=== PATIENT | male | born 1940 | race Caucasian/White ===

== ENCOUNTER 2021-03-16 | Outpatient (REF) | payer MEDICARE, OTHER, SELFPAY ==
[2021-03-23 08:24] LABS: OBS Int Ctl Valid YES; OBS1 NEGATIVE (NEGATIVE); OBS2 NEGATIVE (NEGATIVE); OBS3 NEGATIVE (NEGATIVE)
== END 2021-03-16 00:01 ==
LOC: HO.LNP
PROVIDERS: Visit Provider Internal Medicine
DX: K62.5 Hemorrhage of anus and rectum (principal)
CPT/HCPCS: 82270

== ENCOUNTER 2023-06-02 08:02 | Outpatient (REF) | payer MEDICARE, OTHER, SELFPAY ==
[2023-06-02 08:25] LABS: MANUAL DIFF FLAG NO
[2023-06-02 09:01] LABS: Basophils Percent Auto 0.6 % (0-2); Eosinophils Absolute Auto 0.2 X10*3/uL (0.0-0.4); Eosinophils Percent Auto 3.4 % (0-4); Hemoglobin 15.1 g/dl (14.0-18.0); Imm Gran Abs Auto 0.03 X10*3/uL (0.00-0.03); Imm Gran Pct Auto 0.4 % (0.0-0.4); Lymphocytes Absolute Auto 1.5 X10*3/uL (1.2-4.9); Lymphocytes Percent Auto 21.5 % (20-40); Mean Corpuscular HGB Conc 32.8 g/dl (31.0-36.0); Mean Corpuscular Hemoglobin 30.8 pg (27.0-33.0); Mean Corpuscular Volume 93.9 fL (80.0-98.0); Mean Platelet Volume 11.7 fL (9.4-12.4); Monocytes Absolute Auto 0.6 X10*3/uL (0.1-1.2); Monocytes Percent Auto 8.2 % (2-11); Neutrophils Absolute Auto 4.5 x10*3/uL (2.0-8.3); Neutrophils Percent Auto 65.9 % (45-73); Platelet Count 147 X10*3/uL (160-400); Red Cell Distribution Width 13.2 % (11.0-16.0); White Blood Count 6.8 X10*3/uL (4.8-10.8)
[2023-06-02 09:45] LABS: Alanine Aminotransferase 25 U/L (0-40); Albumin Level 4.3 g/dL (3.5-5.0); Alkaline Phosphatase 58 U/L (39-117); Aspartate Amino Transferase 23 U/L (5-37); Bilirubin Direct 0.2 mg/dL (0.0-0.5); Bilirubin Total 0.6 mg/dL (0.0-1.0); Total Protein 7.4 g/dL (6.5-8.0)
[2023-06-03 13:43] LABS: Immunoglobulin A 188 mg/dL (70-320)
[2023-06-04 19:28] LABS: Gliadin Deamidated IgA Ab <1.0 U/mL; Gliadin Deamidated IgG Ab <1.0 U/mL; Transglutaminase Ab IgG <1.0 U/mL; Transglutaminase IgA <1.0 U/mL
[2023-06-05 13:17] LABS: Endomysial IgA Antibody Negative (Negative)
== END 2023-06-02 08:03 | disposition home or self-care (01) ==
LOC: HO.LAB 08:02
PROVIDERS: Visit Provider Internal Medicine
DX: R19.4 Change in bowel habit (principal)
CPT/HCPCS: 36415; 80076; 82784; 85025; 86231; 86258; 86364

== ENCOUNTER 2023-08-27 08:03 | Outpatient (REF) | payer MEDICARE, OTHER, SELFPAY ==
[2023-08-27 08:24] LABS: MANUAL DIFF FLAG NO
[2023-08-27 09:09] LABS: Basophils Percent Auto 0.5 % (0-2); Eosinophils Absolute Auto 0.2 X10*3/uL (0.0-0.4); Eosinophils Percent Auto 2.8 % (0-4); Hematocrit 46.8 % (42.0-52.0); Hemoglobin 15.4 g/dl (14.0-18.0); Imm Gran Abs Auto 0.02 X10*3/uL (0.00-0.03); Imm Gran Pct Auto 0.3 % (0.0-0.4); Lymphocytes Absolute Auto 1.2 X10*3/uL (1.2-4.9); Lymphocytes Percent Auto 20.2 % (20-40); Mean Corpuscular HGB Conc 32.9 g/dl (31.0-36.0); Mean Corpuscular Hemoglobin 30.9 pg (27.0-33.0); Mean Corpuscular Volume 93.8 fL (80.0-98.0); Mean Platelet Volume 11.8 fL (9.4-12.4); Monocytes Absolute Auto 0.5 X10*3/uL (0.1-1.2); Monocytes Percent Auto 7.9 % (2-11); Neutrophils Absolute Auto 4.2 x10*3/uL (2.0-8.3); Neutrophils Percent Auto 68.3 % (45-73); Platelet Count 134 X10*3/uL (160-400); Red Blood Count 4.99 X10*6/uL (4.60-5.80); Red Cell Distribution Width 14.1 % (11.0-16.0); White Blood Count 6.1 X10*3/uL (4.8-10.8)
[2023-08-27 09:45] LABS: C Reactive Protein 0.45 mg/dL (< or = 0.50)
[2023-08-27 10:08] LABS: Erythrocyte Sedimentation Rate 3 MM/HR (0-15)
== END 2023-08-27 08:04 | disposition home or self-care (01) ==
LOC: HO.LAB 08:03
PROVIDERS: PCP Nurse Practitioner Family; Visit Provider Internal Medicine
DX: R19.7 Diarrhea, unspecified (principal)
CPT/HCPCS: 36415; 85025; 85652; 86140

== ENCOUNTER 2023-09-03 11:01 | Outpatient (REF) | payer MEDICARE, OTHER, SELFPAY ==
[2023-09-03 12:45] LABS: Leukocytes Stool Qualitative NEGATIVE (NEGATIVE)
[2023-09-03 13:29] LABS: Adenovirus F 40/41 Not Detected (Not Detect.); Astrovirus Not Detected (Not Detect.); Campylobacter Not Detected (Not Detect.); Cryptosporidium Not Detected (Not Detect.); Cyclospora cayetanensis Not Detected (Not Detect.); E. coli EAEC Not Detected (Not Detect.); E. coli EPEC Not Detected (Not Detect.); E. coli ETEC Not Detected (Not Detect.); E. coli STEC Not Detected (Not Detect.); Entamoeba histolytica Not Detected (Not Detect.); Giardia lamblia Not Detected (Not Detect.); Plesiomonas shigelloides Not Detected (Not Detect.); Rotavirus A Not Detected (Not Detect.); Salmonella Not Detected (Not Detect.); Sapovirus Not Detected (Not Detect.); Shigella sp./EIEC Not Detected (Not Detect.); Vibrio Not Detected (Not Detect.); Vibrio Cholerae Not Detected (Not Detect.); Yersinia enterocolitica Not Detected (Not Detect.)
[2023-09-03 14:44] LABS: CDiff Gene PCR NEGATIVE (Negative)
[2023-09-05 09:24] LABS: Norovirus Stool PCR NOT DETECTED
[2023-09-09 19:08] LABS: Calprotectin, Fecal 51 mcg/g
== END 2023-09-03 11:02 | disposition home or self-care (01) ==
LOC: HO.LNP 11:01
PROVIDERS: Visit Provider Internal Medicine
DX: R19.7 Diarrhea, unspecified (principal)
CPT/HCPCS: 83993; 87493; 87507; 89055

== ENCOUNTER 2023-10-06 08:39 | Inpatient (IN) | payer MEDICARE, OTHER, SELFPAY ==
--- NOTE | ~2023-10-06 | CT_ITS ---
EXAMINATION: CT ABDOMEN AND PELVIS WITHOUT CONTRAST CLINICAL INFORMATION: Right-sided flank pain COMPARISON: None available. TECHNIQUE: Multidetector volumetric imaging was performed from the superior aspect of the liver through the pubic symphysis. Sagittal and coronal reformatted images were obtained on the technologist's workstation. This CT examination was performed using dose optimization techniques as appropriate, variously including the following: *Automated exposure control *Adjustment of mA and/or kV according to patient size (this includes techniques or standardized protocols for targeted exams where dose is matched to indication/reason for exam; i.e. extremities or head) *Use of iterative reconstruction technique DLP: 544 mGy-cm FINDINGS: LUNG BASES: The visualized lung bases are unremarkable. LIVER, GALLBLADDER, AND BILIARY TREE: The liver is normal in size, shape, and attenuation. No focal hepatic lesion or biliary ductal dilatation is present. The gallbladder is unremarkable with no evidence of radiopaque gallstones, gallbladder wall thickening, or obvious pericholecystic inflammatory changes. PANCREAS: Unremarkable. SPLEEN: Unremarkable. ADRENAL GLANDS: Unremarkable. KIDNEYS AND URETERS: The kidneys are normal in size, shape, and attenuation. No hydronephrosis, hydroureter, or calculi seen. 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 Nonspecific bilateral perinephric stranding. BLADDER: Unremarkable. GASTROINTESTINAL TRACT: The small and large bowel are unremarkable aside from scattered colonic diverticula without diverticulitis. The appendix is mildly distended measuring a centimeter in length. No air is seen within the appendix. Some abdomen decub lymph nodes are present distally. There is mild inflammatory change seen in the periappendiceal fat. No extraluminal air or periappendiceal fluid collection is seen. ABDOMINAL WALL: No significant hernia is appreciated. LYMPH NODES: No retroperitoneal lymphadenopathy. VASCULAR: Calcific atherosclerotic changes are present in the aorta and iliofemoral vessels. There is no evidence of an abdominal aortic aneurysm. PELVIC VISCERA: There is mild BPH. Seminal vesicles appear normal. OSSEOUS STRUCTURES: Degenerative changes are present throughout the lumbosacral spine. There is grade 1 retrolisthesis of L2 upon L3, L3 upon L4 and L5 upon S1. There is grade 1 anterolisthesis of L4 upon L5. CT/CT abdomen pelvis wo IV con IMPRESSION: 1. Acute uncomplicated appendicitis. 2. Other incidental findings as described above. Fleischner guidelines were followed.
[2023-10-06 09:12] VITALS: BP 155/62; PULSE 66; RESP 18; TEMP 36.5; O2SAT 96; BMI 28.9
[2023-10-06 09:41] LABS: MANUAL DIFF FLAG NO
[2023-10-06 09:43] LABS: Appearance Urine Clear; Color Urine Yellow; Glucose Urine UA >=1000 mg/dL (Negative); Leukocyte Esterase Urine Negative (Negative); Nitrite Urine Negative (Negative); Specific Gravity - Urine 1.025 (1.005-1.025); UMIC TRIGGER UACC YES; Urine Blood Negative (Negative); Urine Ketones Negative (Negative); Urine Protein Negative (Neg-Trace)
[2023-10-06 09:45] LABS: Bacteria Urine None Seen (None Seen); Basophils Percent Auto 0.4 % (0-2); Eosinophils Absolute Auto 0.2 X10*3/uL (0.0-0.4); Hematocrit 43.9 % (42.0-52.0); Hemoglobin 14.4 g/dl (14.0-18.0); Hyaline Casts Urine 0-2 /LPF (0-2); Imm Gran Abs Auto 0.03 X10*3/uL (0.00-0.03); Imm Gran Pct Auto 0.4 % (0.0-0.4); Lymphocytes Absolute Auto 1.4 X10*3/uL (1.2-4.9); Lymphocytes Percent Auto 16.5 % (20-40); Mean Corpuscular HGB Conc 32.8 g/dl (31.0-36.0); Mean Corpuscular Hemoglobin 31.4 pg (27.0-33.0); Mean Corpuscular Volume 95.6 fL (80.0-98.0); Mean Platelet Volume 11.3 fL (9.4-12.4); Monocytes Absolute Auto 0.6 X10*3/uL (0.1-1.2); Monocytes Percent Auto 7.6 % (2-11); Neutrophils Percent Auto 73.1 % (45-73); Platelet Count 158 X10*3/uL (160-400); RBC Urine 0-2 /HPF (0-2); Red Blood Count 4.59 X10*6/uL (4.60-5.80); Red Cell Distribution Width 14.6 % (11.0-16.0); Squamous Epithelial Cell Urine 0-2 /HPF (0-2); WBC Urine 0-5 /HPF (0-5); White Blood Count 8.2 X10*3/uL (4.8-10.8)
[2023-10-06 09:57] LABS: Alanine Aminotransferase 33 U/L (0-40); Albumin Level 4.4 g/dL (3.5-5.0); Alkaline Phosphatase 47 U/L (39-117); Anion Gap 12 (12-20); Aspartate Amino Transferase 33 U/L (5-37); Bilirubin Direct 0.2 mg/dL (0.0-0.5); Bilirubin Total 0.6 mg/dL (0.0-1.0); Blood Urea Nitrogen 22 mg/dL (9-16); Carbon Dioxide 26 mmol/L (22-29); Chloride 108 mmol/L (96-108); Estimated Glomerular Filt Rate 49; Glucose Random 128 mg/dL (60-115); Magnesium 1.7 mg/dL (1.6-2.6); Potassium 4.3 mmol/L (3.3-5.1); Sodium 142 mmol/L (135-145); Total Protein 7.2 g/dL (6.5-8.0)
--- NOTE | 2023-10-06 11:03 | ED.ABDPAIN ---
HPI - Abdominal Pain General Chief Complaint: Abdominal Pain Stated Complaint: pain on r side abd and r lung Time Seen by Provider: 10/06/23 11:03 Source: patient Mode of arrival: ambulatory Limitations: no limitations History of Present Illness ED Provider: Dr. Escudero HPI narrative: 83yo male with DM, HTN, CAD with Cabbg, who presents with shooting right lower abdominal pain starting yesterday. He denies fever, NV. MD elicited complaint: abdominal pain Onset (ago): day(s) Pain Consistency: constant Severity: mild Quality: other (shooting) Related Data Allergies Allergy/AdvReac Type Severity Reaction Status Date / Time atenolol AdvReac Dizziness Verified 10/06/23 09:16 diltiazem [From Cardizem] AdvReac Heartburn Verified 10/06/23 09:16 losartan AdvReac Headache Verified 10/06/23 09:16 propranolol [From Inderal [place]] AdvReac Heartburn Verified 10/06/23 09:16 Review of Systems Review of Systems Yes all other systems are reviewed and are negative Denies Sensory deficit (Neuro) [facility] Past Medical History Medical History (Updated 10/06/23 @ 13:43 by Kaleb Escudero MD) Acute appendicitis Hypertension Coronary artery disease Surgical History (Updated 10/06/23 @ 13:19 by Ortiz Estrella MD) Status post aorto-coronary artery bypass graft Social History Social History Advance Directives: No Advance Directives Information Provided: No Do you have a plan to hurt others: No Plan Physical Exam ED Vital Signs: Vital Signs - 24 hr 10/06/23 09:12 10/06/23 11:47 10/06/23 12:28 Temperature 97.7 F 97.9 F 98.8 F Pulse Rate 66 62 57 Respiratory Rate 18 16 16 Blood Pressure 155/62 H 151/67 H 157/68 H Pulse Oximetry 96 98 96 Oxygen Delivery Method Room Air Room Air Room Air BMI result Body Mass Index 28.9 Const General: healthy appearing Nutritional Appearance: average body habitus Orientation/consciousness: oriented to person and patient oriented x3 Limitations: no limitations HENMT Head: Yes normal to inspection Ears: external ears normal General nose exam: Normal external nose present Mouth: Normal oral and palatal mucosa present and oropharynx normal Throat: Yes posterior oropharynx normal Eyes General: appearance normal, both eyes and all related structures Neck Neck: Yes normal visual inspection Chest Chest palpation & inspection: normal inspection of the chest Resp Auscultation: clear to auscultation bilaterally Cardio Jugular venous distension: no JVD Rate: regular rate Rhythm: regular rhythm Heart sounds: S1 normal heart sound present and S2 normal heart sound present GI Other: there was no reproducible right sided abdominal pain Inspection: Yes normal to inspection Palpation (GI): Soft to palpation, nontender and No hepatosplenomegaly present Auscultation: normal bowel sounds General: Yes no CVA tenderness Back/Spine/Pelvis Back: no CVA tenderness Skin General skin exam: no rashes or lesions noted Neuro General: oriented to person and patient oriented x3 Cranial nerves: Yes CN's II-XII intact bilaterally Motor exam (neuro): 5/5 motor strength present throughout Sensory Exam: No Sensory deficit (Neuro) Extrem General: Yes normal to inspection Psych Appearance: grossly normal Course Reevaluation(s) Reevaluation #1: Discussed with Dr. Estrella will start zosyn and get admitted Time: 13:14 Medical Decision Making Differential Diagnosis Differential Diagnoses: The differential diagnosis associated with the presentation includes (renal colic, biliary colic, appendicitis, UTI were all considered) Admission/Observation Consideration of admission/observation: Escalation of care including admission/observation considered (upon arrival patient considered for admission) Consult Healthcare Provider Management of the patient was discussed with: Savings Counselor (Dr. Estrella general surgery) Lab Data 10/06/23 09:34 10/06/23 09:34 Labs: Lab Results 10/06/23 Range/Units 09:34 WBC 8.2 (4.8-10.8) X10*3/uL RBC 4.59 L (4.60-5.80) X10*6/uL Hgb 14.4 (14.0-18.0) g/dl Hct 43.9 (42.0-52.0) % MCV 95.6 (80.0-98.0) fL MCH 31.4 (27.0-33.0) pg MCHC 32.8 (31.0-36.0) g/dl RDW 14.6 (11.0-16.0) % Plt Count 158 L (160-400) X10*3/uL MPV 11.3 (9.4-12.4) fL Immature Gran % (Auto) 0.4 (0.0-0.4) % Neut % (Auto) 73.1 H (45-73) % Lymph % (Auto) 16.5 L (20-40) % [place] % (Auto) 7.6 (2-11) % Eos % (Auto) 2.0 (0-4) % Baso % (Auto) 0.4 (0-2) % Lymph # (Auto) 1.4 (1.2-4.9) X10*3/uL [place] # (Auto) 0.6 (0.1-1.2) X10*3/uL Eos # (Auto) 0.2 (0.0-0.4) X10*3/uL Baso # (Auto) 0.0 (0.0-0.2) X10*3/uL Abs Immat Gran (auto) 0.03 (0.00-0.03) X10*3/uL Absolute Neuts (auto) 6.0 (2.0-8.3) x10*3/uL Absolute Nucleated RBC 0.000 (0.0-0.012) X10*3/uL Nucleated RBC % (auto) 0.0 (0.0-0.2) /100WBC Sodium 142 (135-145) mmol/L Potassium 4.3 (3.3-5.1) mmol/L Chloride 108 (96-108) mmol/L Carbon Dioxide 26 (22-29) mmol/L Anion Gap 12 (12-20) BUN 22 H (9-16) mg/dL Creatinine 1.38 (0.5-1.4) mg/dL Estim Creat Clear Calc 44.0 Estimated GFR 49 Random Glucose 128 H (60-115) mg/dL Calcium 10.0 (8.4-10.2) mg/dL Magnesium 1.7 (1.6-2.6) mg/dL Total Bilirubin 0.6 (0.0-1.0) mg/dL Direct Bilirubin 0.2 (0.0-0.5) mg/dL AST 33 (5-37) U/L ALT 33 (0-40) U/L Alkaline Phosphatase 47 (39-117) U/L Total Protein 7.2 (6.5-8.0) g/dL Albumin 4.4 (3.5-5.0) g/dL Urine Color Yellow Urine Appearance Clear Urine pH 7.0 (5.0-9.0) Ur Specific [place] 1.025 (1.005-1.025) Urine Protein Negative (Neg-Trace) mg/dL Urine Glucose (UA) >=1000 H (Negative) mg/dL Urine Ketones Negative (Negative) mg/dL Urine Blood Negative (Negative) Urine Nitrite Negative (Negative) Ur Leukocyte Esterase Negative (Negative) Urine RBC 0-2 (0-2) /HPF Urine WBC 0-5 (0-5) /HPF Ur Squamous Epith Cells 0-2 (0-2) /HPF Urine Bacteria None Seen (None Seen) Hyaline Casts 0-2 (0-2) /LPF Independent Interpretation I performed an independent interpretation of an: CT Scan (no renal stone or hydro seen) Radiology Impression Discussion of test interpretation with radiology: I discussed test interpretation with the radiologist (called about acute appendicitis findings) Discharge Plan Discharge Clinical Impression: Appendicitis Patient Disposition: Admitted As Inpatient Print Language: Upper Sorbian
[2023-10-06 11:47] VITALS: BP 151/67; PULSE 62; RESP 16; TEMP 36.6; O2SAT 98
[2023-10-06 12:28] VITALS: BP 157/68; PULSE 57; RESP 16; TEMP 37.1; O2SAT 96
--- NOTE | 2023-10-06 13:18 | PM.HPGS ---
History of Present Illness History of Present Illness Date of Service: 10/07/23 Chief complaint: Acute appendicitis Narrative: Marshal Antonio is a 83 year old male here in the ER for right lower quadrant pain. He says that this started around 10:00 o'clock last night. He describes his a sharp although low intensity. He said that this persistent overnight so he decided to come to the emergency room early this morning He denies any nausea or vomiting. He denies any fever at home. He denies any diarrhea He has known coronary artery disease and had CABG in 2020. Review of Systems Constitutional: Constitutional: Denies chills and Denies fever(s) Cardiovascular: Cardiovascular: Denies chest pain, Denies dyspnea and Denies dyspnea on exertion Respiratory: Respiratory: Denies cough, Denies dyspnea and Denies dyspnea on exertion Gastrointestinal: Gastrointestinal: Denies hematochezia and Denies change in bowel habits Genitourinary: Genitourinary: Denies hematuria and Denies difficulty urinating Musculoskeletal: Musculoskeletal: Denies back pain and Denies limited range of motion Neurologic: Denies focal weakness and Denies convulsions Psychiatric: Psychiatric: Denies depression and Denies mood swings PMFSH Past Medical History Medical History [place] esophagus Diabetic neuropathy Prostate cancer COPD (chronic obstructive pulmonary disease) Diabetes Acute appendicitis Hypertension Coronary artery disease Surgical History Surgical History Status post radiation therapy Status post aorto-coronary artery bypass graft Social History Social History Household Members: Spouse Housing: House Do you presently have visiting nurse or other home services: No Patient Tobacco Use Status: Never used Tobacco Smoked in Last 30 Days: No Use of substances other than those prescribed or required for medical reasons: No Currently Displaying Signs/Symptoms of Drug Intoxication Withdrawal: No Have you been hit, kicked, punched, or otherwise hurt by someone within the past year? If so, by whom?: No Do you feel safe in your current relationship?: Yes Is there a partner from a previous relationship who is making you feel unsafe now?: No Are you made to feel afraid or neglected: No Advance Directives: No Advance Directives Information Provided: No Do you have a plan to hurt others: No Plan Recently lost weight without trying: No How much weight loss: Not applicable Eating poorly because of decreased appetite: No Nutrition screen score: 0 Nutrition Risks: No Nutritional Risk Poor oral hygiene: No service: No Meds Allergies Allergy/AdvReac Type Severity Reaction Status Date / Time atenolol AdvReac Dizziness Verified 10/06/23 09:16 diltiazem [From Cardizem] AdvReac Heartburn Verified 10/06/23 09:16 losartan AdvReac Headache Verified 10/06/23 09:16 propranolol [From Inderal [place]] AdvReac Heartburn Verified 10/06/23 09:16 Active Medications: Current Medications Piperacillin Sod/Tazobactam (Sod 3.375 gm/ Sodium Chloride) 50 mls @ 100 mls/hr IV ONCE ONE Stop: 10/06/23 13:41 Home Medications ?Medication ?Instructions ?Recorded ?Confirmed ?Last Taken ?Type aspirin 81 mg tablet,delayed 81 mg PO DAILY 10/06/23 10/06/23 Unknown History release cholecalciferol (vitamin D3) 50 50 mcg PO DAILY 10/06/23 10/06/23 Unknown History mcg (2,000 unit) tablet (Vitamin D3) cyanocobalamin (vitamin B-12) 1,000 mcg PO DAILY 10/06/23 10/06/23 Unknown History 1,000 mcg tablet doxazosin 8 mg tablet 8 mg PO BEDTIME 10/06/23 10/06/23 Unknown History empagliflozin 12.5 mg-metformin ER 1 tab PO BID 10/06/23 10/06/23 Unknown History 1,000 mg tablet,extended rel 24 hr (Synjardy XR) fenofibrate micronized 134 mg 134 mg PO DAILY 10/06/23 10/06/23 Unknown History capsule ferrous sulfate 325 mg (65 mg 325 mg PO DAILY 10/06/23 10/06/23 Unknown History iron) tablet finasteride 5 mg tablet 5 mg PO DAILY 10/06/23 10/06/23 Unknown History glipizide 2.5 mg tablet, extended 2.5 mg PO DAILY 10/06/23 10/06/23 Unknown History release 24 hr lisinopril 5 mg tablet 5 mg PO DAILY 10/06/23 10/06/23 Unknown History metoprolol tartrate 50 mg tablet 50 mg PO BID 10/06/23 10/06/23 Unknown History multivitamin 1 tab PO DAILY 10/06/23 10/06/23 Unknown History omeprazole 20 mg capsule,delayed 20 mg PO DAILY 10/06/23 10/06/23 Unknown History release rosuvastatin 10 mg tablet 10 mg PO DAILY 10/06/23 10/06/23 Unknown History Physical Exam Vital Signs: Vital Signs: Last Vital Signs Temp 98.8 F 10/06/23 12:28 Pulse 57 10/06/23 12:28 Resp 16 10/06/23 12:28 BP 157/68 H 10/06/23 12:28 Pulse Ox 96 10/06/23 12:28 O2 Del Method Room Air 10/06/23 12:28 BMI result Body Mass Index 28.9 Const: General: comfortable and no acute distress Orientation/consciousness: patient oriented x3 Neck: Neck: Yes no lymphadenopathy Resp: Auscultation: clear to auscultation bilaterally Cardio: Rhythm: regular rhythm GI: Other: Minimal tenderness in the right lower quadrant with no guarding or rebound Palpation (GI): Soft to palpation, nontender and no guarding Neuro: General: patient oriented x3 Results Results Labs: Short CBC 10/06/23 Range/Units 09:34 WBC 8.2 (4.8-10.8) X10*3/uL Hgb 14.4 (14.0-18.0) g/dl Hct 43.9 (42.0-52.0) % Plt Count 158 L (160-400) X10*3/uL BMP 10/06/23 09:34 Sodium 142 Potassium 4.3 Chloride 108 Carbon Dioxide 26 BUN 22 H Creatinine 1.38 Calcium 10.0 Liver Function 10/06/23 Range/Units 09:34 Total Bilirubin 0.6 (0.0-1.0) mg/dL Direct Bilirubin 0.2 (0.0-0.5) mg/dL AST 33 (5-37) U/L ALT 33 (0-40) U/L Alkaline Phosphatase 47 (39-117) U/L Albumin 4.4 (3.5-5.0) g/dL Urine 10/06/23 Range/Units 09:34 Urine Color Yellow Urine Appearance Clear Urine pH 7.0 (5.0-9.0) Ur Specific [place] 1.025 (1.005-1.025) Urine Protein Negative (Neg-Trace) mg/dL Urine Glucose (UA) >=1000 H (Negative) mg/dL Abdomen CT scan report/results: report reviewed and image reviewed CT scan - pelvis: report reviewed and image reviewed Additional studies: Laboratory Results WBC 8.2 X10*3/uL (4.8-10.8) 10/06/23 09:34 RBC 4.59 X10*6/uL (4.60-5.80) L 10/06/23 09:34 Hgb 14.4 g/dl (14.0-18.0) 10/06/23 09:34 Hct 43.9 % (42.0-52.0) 10/06/23 09:34 MCV 95.6 fL (80.0-98.0) 10/06/23 09:34 MCH 31.4 pg (27.0-33.0) 10/06/23 09:34 MCHC 32.8 g/dl (31.0-36.0) 10/06/23 09:34 RDW 14.6 % (11.0-16.0) 10/06/23 09:34 Plt Count 158 X10*3/uL (160-400) L 10/06/23 09:34 MPV 11.3 fL (9.4-12.4) 10/06/23 09:34 Immature Gran % (Auto) 0.4 % (0.0-0.4) 10/06/23 09:34 Neut % (Auto) 73.1 % (45-73) H 10/06/23 09:34 Lymph % (Auto) 16.5 % (20-40) L 10/06/23 09:34 [place] % (Auto) 7.6 % (2-11) 10/06/23 09:34 Eos % (Auto) 2.0 % (0-4) 10/06/23 09:34 Baso % (Auto) 0.4 % (0-2) 10/06/23 09:34 Lymph # (Auto) 1.4 X10*3/uL (1.2-4.9) 10/06/23 09:34 [place] # (Auto) 0.6 X10*3/uL (0.1-1.2) 10/06/23 09:34 Eos # (Auto) 0.2 X10*3/uL (0.0-0.4) 10/06/23 09:34 Baso # (Auto) 0.0 X10*3/uL (0.0-0.2) 10/06/23 09:34 Abs Immat Gran (auto) 0.03 X10*3/uL (0.00-0.03) 10/06/23 09:34 Absolute Neuts (auto) 6.0 x10*3/uL (2.0-8.3) 10/06/23 09:34 Absolute Nucleated RBC 0.000 X10*3/uL (0.0-0.012) 10/06/23 09:34 Nucleated RBC % (auto) 0.0 /100WBC (0.0-0.2) 10/06/23 09:34 Sodium 142 mmol/L (135-145) 10/06/23 09:34 Potassium 4.3 mmol/L (3.3-5.1) 10/06/23 09:34 Chloride 108 mmol/L (96-108) 10/06/23 09:34 Carbon Dioxide 26 mmol/L (22-29) 10/06/23 09:34 Anion Gap 12 (12-20) 10/06/23 09:34 BUN 22 mg/dL (9-16) H 10/06/23 09:34 Creatinine 1.38 mg/dL (0.5-1.4) 10/06/23 09:34 Estim Creat Clear Calc 44.0 10/06/23 09:34 Estimated GFR 49 10/06/23 09:34 Random Glucose 128 mg/dL (60-115) H 10/06/23 09:34 Calcium 10.0 mg/dL (8.4-10.2) 10/06/23 09:34 Magnesium 1.7 mg/dL (1.6-2.6) 10/06/23 09:34 Total Bilirubin 0.6 mg/dL (0.0-1.0) 10/06/23 09:34 Direct Bilirubin 0.2 mg/dL (0.0-0.5) 10/06/23 09:34 AST 33 U/L (5-37) 10/06/23 09:34 ALT 33 U/L (0-40) 10/06/23 09:34 Alkaline Phosphatase 47 U/L (39-117) 10/06/23 09:34 Total Protein 7.2 g/dL (6.5-8.0) 10/06/23 09:34 Albumin 4.4 g/dL (3.5-5.0) 10/06/23 09:34 Urine Color Yellow 10/06/23 09:34 Urine Appearance Clear 10/06/23 09:34 Urine pH 7.0 (5.0-9.0) 10/06/23 09:34 Ur Specific [place] 1.025 (1.005-1.025) 10/06/23 09:34 Urine Protein Negative mg/dL (Neg-Trace) 10/06/23 09:34 Urine Glucose (UA) >=1000 mg/dL (Negative) H 10/06/23 09:34 Urine Ketones Negative mg/dL (Negative) 10/06/23 09:34 Urine Blood Negative (Negative) 10/06/23 09:34 Urine Nitrite Negative (Negative) 10/06/23 09:34 Ur Leukocyte Esterase Negative (Negative) 10/06/23 09:34 Urine RBC 0-2 /HPF (0-2) 10/06/23 09:34 Urine WBC 0-5 /HPF (0-5) 10/06/23 09:34 Ur Squamous Epith Cells 0-2 /HPF (0-2) 10/06/23 09:34 Urine Bacteria None Seen (None Seen) 10/06/23 09:34 Hyaline Casts 0-2 /LPF (0-2) 10/06/23 09:34 Impressions Abdomen/Pelvis CT 10/06/23 09:59 IMPRESSION: 1. Acute uncomplicated appendicitis. 2. Other incidental findings as described above. Fleischner guidelines were followed. Assessment and Plan (1) Acute appendicitis: Status: Acute He has had right lower quadrant pain since last night, the he describes this as very low intensity. He has no leukocytosis. His CAT scan shows mild inflammatory changes around the appendix. There has no appendicolith I had a long discussion with him about options including nonoperative treatment with antibiotics versus appendectomy. I explained to him the risks, benefits, and alternatives of each option. He says that he prefers to not undergo surgery if possible We will therefore admit him and place him on IV antibiotics. He does understand that if he does not seem to improve clinically, then we may need to still proceed with appendectomy. He is comfortable with the plan. I have consulted the hospitalist service as well in view of his multiple medical problems including coronary artery disease. Quality Stroke Does the patient have a stroke diagnosis?: No VTE Prior VTE?: No VTE Risk Level:: Medical - moderate - high VTE Device Contraindication: N/A - Device Ordered VTE Drug Contraindication: N/A - Med Ordered Procedures Date of Service Date of Service: 10/07/23
[2023-10-06] MEDS: Piperacillin Sodium/Tazobactam 3.375 GM in 0.9 % Sodium Chloride 50 ML IV ×2 (13:42→19:54)
--- NOTE | 2023-10-06 14:24 | P.CONHOSP_ITS ---
History of Present Illness Data of Consult Service Date: 10/06/23 Requesting physician: Ortiz Grady Primary Care Provider: Renay Torres CNP HPI Reason for consult: medical management, htn cad 83-year-old male with history of hypertension, CAD s/p CABG 02/2021, [id number] type 2 diabetes, hyperlipidemia, GERD, CKD stage 3, history of prostate cancer s/p radiation, copd presented to the ED with RLQ pain found to have acute appendicitis admitted to general surgery with consult placed to hospitalist service for medical management. The patient has been afebrile with stable VSS. No leukocytosis. Renal fx and lytes wnl. UA unremarkable. CT abd/pelvis shows acute uncomplicated appenditicitis. Plan per general surgery is conservative with IV abx and close clinical monitoring. The patient is comfortable currently reports 4/10 discomfort RLQ. NO n/v/d, radiation of pain. No sob, lightheadedness, cp. Reviewed last echo 04/2021 showing normal LV systolic function with EF 55-60% with grade 2 diastolic dysfunction elevated left arterial pressures. No wall motion abnormality. There was mild/moderate mitral/tricuspid regurgitation. NO etoh, illicit drug, mj, or cigarette smoking. Review of Systems 2 Review of Systems: Yes all other systems are reviewed and are negative [facility] Medical History [place] esophagus Diabetic neuropathy Prostate cancer COPD (chronic obstructive pulmonary disease) Diabetes Acute appendicitis Hypertension Coronary artery disease Surgical History Status post radiation therapy Status post aorto-coronary artery bypass graft Social History Advance Directives: No Advance Directives Information Provided: No Do you have a plan to hurt others: No Plan Meds Allergies Allergy/AdvReac Type Severity Reaction Status Date / Time atenolol AdvReac Dizziness Verified 10/06/23 09:16 diltiazem [From Cardizem] AdvReac Heartburn Verified 10/06/23 09:16 losartan AdvReac Headache Verified 10/06/23 09:16 propranolol [From Inderal [place]] AdvReac Heartburn Verified 10/06/23 09:16 Active Medications: Current Medications Acetaminophen (Acetaminophen Supp 650 Mg Supp.Rect) 650 mg MN Q6H PRN PRN Reason: Pain, Mild (Pain Scale 1-3) Glucose (Glucose Gel 15 Gm Gel..Gram.) 15 gm PO Q15M PRN; Protocol PRN Reason: per Hypoglycemia Standing Ord. Heparin Sodium (Porcine) (Heparin Sodium,Porcine 5,000 Unit/Ml Vial) 5,000 unit SUBCUT Q12H [facility] Piperacillin Sod/Tazobactam (Sod 3.375 gm/ Sodium Chloride) 50 mls @ 100 mls/hr IV Q6H [facility] Last Admin: 10/06/23 13:43 Dose: Not Given Dextrose (D10) 250 mls @ 750 mls/hr IV Q15M PRN; Protocol PRN Reason: per Hypoglycemia Standing Ord. Insulin Human Lispro (Insulin Lispro 100 Unit/Ml 3 Ml Vial) 0 unit SUBCUT QIDACHS [facility]; Protocol Morphine Sulfate (Morphine Sulfate 4 Mg/Ml Cartridge) 2 mg IVPUSH Q3H PRN; Protocol PRN Reason: Pain, Severe (Pain Scale 7-10) Ondansetron HCl (Ondansetron Hcl 4 Mg/2 Ml Vial) 4 mg IVPUSH Q8H PRN PRN Reason: Nausea and Vomiting Sodium Chloride (0.9 % Sodium Chloride Flush 3 Ml Syringe) 3 ml IVFLUSH QSHIFT [facility] Physical Exam 2 Vital Signs and Narrative: Vital Signs: Last Vital Signs Temp 98.8 F 10/06/23 12:28 Pulse 57 10/06/23 12:28 Resp 16 10/06/23 12:28 BP 157/68 H 10/06/23 12:28 Pulse Ox 96 10/06/23 12:28 O2 Del Method Room Air 10/06/23 12:28 BMI result Body Mass Index 28.9 Constitutional - Awake and Alert, No apparent distress Eyes - PERRLA, EOMI Cardiovascular - S1S2, RRR, No edema Respiratory - Normal lung expansion, Normal respiratory effort, No respiratory distress, CTA bilaterally Extremities - no calf tenderness bilaterally, no swelling Skin - Warm/Dry Neurological - Alert & oriented x3 Psychological - Appropriate affect Results Labs 10/06/23 09:34 10/06/23 09:34 Labs: Laboratory Results - last 24 hr 10/06/23 09:34 MCV 95.6 MCH 31.4 MCHC 32.8 RDW 14.6 Plt Count 158 L MPV 11.3 Immature Gran % (Auto) 0.4 Neut % (Auto) 73.1 H Lymph % (Auto) 16.5 L [place] % (Auto) 7.6 Eos % (Auto) 2.0 Baso % (Auto) 0.4 Lymph # (Auto) 1.4 [place] # (Auto) 0.6 Eos # (Auto) 0.2 Baso # (Auto) 0.0 Abs Immat Gran (auto) 0.03 Absolute Neuts (auto) 6.0 Absolute Nucleated RBC 0.000 Nucleated RBC % (auto) 0.0 Anion Gap 12 Estim Creat Clear Calc 44.0 Estimated GFR 49 Random Glucose 128 H Calcium 10.0 Magnesium 1.7 Total Bilirubin 0.6 Direct Bilirubin 0.2 AST 33 ALT 33 Alkaline Phosphatase 47 Total Protein 7.2 Albumin 4.4 Urine Color Yellow Urine Appearance Clear Urine pH 7.0 Ur Specific [place] 1.025 Urine Protein Negative Urine Glucose (UA) >=1000 H Urine Ketones Negative Urine Blood Negative Urine Nitrite Negative Ur Leukocyte Esterase Negative Urine RBC 0-2 Urine WBC 0-5 Ur Squamous Epith Cells 0-2 Urine Bacteria None Seen Hyaline Casts 0-2 Imaging Radiologist's Impressions: Impressions Abdomen/Pelvis CT 10/06/23 09:59 IMPRESSION: 1. Acute uncomplicated appendicitis. 2. Other incidental findings as described above. Fleischner guidelines were followed. Assessment and Plan (1) Appendicitis: Status: Acute Plan 83-year-old male with history of hypertension, CAD s/p CABG 02/2021, [id number] type 2 diabetes, hyperlipidemia, GERD, CKD stage 3, history of prostate cancer s/p radiation, copd presented to the ED with RLQ pain found to have acute appendicitis admitted to general surgery with consult placed to hospitalist service for medical management. #Acute appendicitis -plan per general surgery. Discussed with Dr. grady- plan for iv abx at this time -should pt require surgery, he is a classs III-IV risk on revised cardiac risk index. Recommend cardiology pre-op assessment, unless emergent surgery required -hold aspirin in case of need for surgery #HTN -continue metoprolol, lisinopril #GERD -ppi #non insulin dependent dm -hold po antihyperglycemics -poc glucose, diabetic diet -admelog on ss #CAD/HFrEF -euvolemic, no chest pain -hold asa. continue statin, bb, jean -not on diuretics Thank you for this consult, will continue following
--- NOTE | 2023-10-06 16:06 | PHA.MEDREC ---
Pharmacy Consult ? Medication Reconciliation Pharmacy has completed the medication reconciliation, pt had list, pt also confirmed he is not using mesalamine suppositories.
--- NOTE | 2023-10-06 16:55 | PM.EVENT ---
Event Note Date of Service: 10/07/23 Event Note: seen on PM rounds feels well says he seems to have less pain on RLQ looks comfortable abd soft, very minimal tenderness with deep palpation of RLQ stable VS continue IV abx hung Hospitalist - multiple medical problems noted Time Spent With Patient Time: Total time managing care of this patient today ____ minutes.
[2023-10-06 18:37] LABS: Glucose, Whole Blood 75 mg/dL (60-115)
[2023-10-06 20:00] VITALS: BP 139/62; PULSE 69; RESP 17; TEMP 37; O2SAT 95
[2023-10-06 20:07] LABS: Glucose, Whole Blood 129 mg/dL (60-115)
[2023-10-06 21:06] VITALS: BMI 27.4
[2023-10-06 21:11] VITALS: BP 159/75; PULSE 62; RESP 18; TEMP 36.2; O2SAT 96
[2023-10-06 21:24] VITALS: BP 159/75; PULSE 62
[2023-10-06] MEDS: Doxazosin Mesylate 2 MG TABLET 8 MG PO (21:24)
[2023-10-06] MEDS: Metoprolol Tartrate 50 MG TABLET PO (21:24)
[2023-10-06] MEDS: 0.9 % Sodium Chloride Flush 3 ML SYRINGE IVFLUSH (21:25)
[2023-10-07] MEDS: Piperacillin Sodium/Tazobactam 3.375 GM in 0.9 % Sodium Chloride 50 ML IV ×4 (00:47→20:13)
[2023-10-07 03:10] VITALS: BP 132/62; PULSE 50; RESP 18; TEMP 36.2; O2SAT 96
[2023-10-07 06:06] LABS: Anion Gap 14 (12-20); Blood Urea Nitrogen 18 mg/dL (9-16); Calcium 9.7 mg/dL (8.4-10.2); Carbon Dioxide 24 mmol/L (22-29); Chloride 107 mmol/L (96-108); Estimated Glomerular Filt Rate 55; Glucose Random 99 mg/dL (60-115); Potassium 3.7 mmol/L (3.3-5.1); Sodium 141 mmol/L (135-145)
[2023-10-07 06:25] LABS: Hematocrit 42.8 % (42.0-52.0); Hemoglobin 14.3 g/dl (14.0-18.0); Mean Corpuscular HGB Conc 33.4 g/dl (31.0-36.0); Mean Corpuscular Hemoglobin 31.6 pg (27.0-33.0); Mean Corpuscular Volume 94.5 fL (80.0-98.0); Platelet Count 147 X10*3/uL (160-400); Red Blood Count 4.53 X10*6/uL (4.60-5.80); Red Cell Distribution Width 14.5 % (11.0-16.0); White Blood Count 6.4 X10*3/uL (4.8-10.8)
[2023-10-07] MEDS: 0.9 % Sodium Chloride Flush 3 ML SYRINGE IVFLUSH ×2 (07:08→16:38)
--- NOTE | 2023-10-07 07:26 | PM.PNGS ---
Subjective Subjective Date of Service: 10/08/23 Interval history: Denies abdominal pain No events overnight No fever Admits to some sharp tenderness when he pushes hard on his right lower quadrant Physical Exam Vital Signs: Vital Signs: Last Vital Signs Temp 97.2 F 10/07/23 03:10 Pulse 50 10/07/23 03:10 Resp 18 10/07/23 03:10 BP 132/62 10/07/23 03:10 Pulse Ox 96 10/07/23 03:10 O2 Del Method Room Air 10/07/23 03:10 BMI result Body Mass Index 27.4 Const: Other: Looks well General: comfortable and no acute distress Resp: Effort & Inspection: normal respiratory effort Cardio: Rate: regular rate GI: Other: Very minimal tenderness to deep palpation in the right lower quadrant Palpation (GI): Soft to palpation, not firm and no guarding Objective Data Active Medications Acetaminophen (Acetaminophen Supp 650 Mg Supp.Rect) 650 mg [place] Q6H PRN PRN Reason: Pain, Mild (Pain Scale 1-3) Atorvastatin Calcium (Atorvastatin Calcium 40 Mg Tablet) 40 mg PO DAILY [facility] Cyanocobalamin (Cyanocobalamin (Vitamin B-12) 1,000 Mcg Tablet) 1,000 mcg PO DAILY [facility] Doxazosin Mesylate (Doxazosin Mesylate 2 Mg Tablet) 8 mg PO BEDTIME SHANI; Protocol Last Admin: 10/06/23 21:24 Dose: 8 mg Documented By: GIFTY Fenofibrate (Fenofibrate,Micronized 134 Mg Capsule) 134 mg PO DAILY [facility] Ferrous Sulfate (Ferrous Sulfate 324 Mg Tablet.Dr) 324 mg PO DAILY [facility] Finasteride (Finasteride 5 Mg Tablet) 5 mg PO DAILY [facility] Glucose (Glucose Gel 15 Gm Gel..Gram.) 15 gm PO Q15M PRN; Protocol PRN Reason: per Hypoglycemia Standing Ord. Heparin Sodium (Porcine) (Heparin Sodium,Porcine 5,000 Unit/Ml Vial) 5,000 unit SUBCUT Q12H SHANI Piperacillin Sod/Tazobactam (Sod 3.375 gm/ Sodium Chloride) 50 mls @ 100 mls/hr IV Q6H [facility] Last Admin: 10/07/23 07:04 Dose: 100 mls/hr Documented By: LEONARDA Dextrose (D10) 250 mls @ 750 mls/hr IV Q15M PRN; Protocol PRN Reason: per Hypoglycemia Standing Ord. Insulin Human Lispro (Insulin Lispro 100 Unit/Ml 3 Ml Vial) 0 unit SUBCUT QIDACHS [facility]; Protocol Last Admin: 10/06/23 20:58 Dose: Not Given Documented By: GIFTY Non-Admin Reason: No Insulin Coverage Lisinopril (Lisinopril 5 Mg Tablet) 5 mg PO DAILY [facility]; Protocol Metoprolol Tartrate (Metoprolol Tartrate 50 Mg Tablet) 50 mg PO BID [facility]; Protocol Last Admin: 10/06/23 21:24 Dose: 50 mg Documented By: GIFTY Morphine Sulfate (Morphine Sulfate 4 Mg/Ml Cartridge) 2 mg IVPUSH Q3H PRN; Protocol PRN Reason: Pain, Severe (Pain Scale 7-10) Multivitamins/Vitamin C (Multivitamin Tablet) 1 tab PO DAILY [facility] Omeprazole (Omeprazole 20 Mg Capsule.Dr) 20 mg PO DAILY [facility] Ondansetron HCl (Ondansetron Hcl 4 Mg/2 Ml Vial) 4 mg IVPUSH Q8H PRN PRN Reason: Nausea and Vomiting Sodium Chloride (0.9 % Sodium Chloride Flush 3 Ml Syringe) 3 ml IVFLUSH QSHIFT [facility] Last Admin: 10/07/23 07:08 Dose: 3 ml Documented By: LEONARDA Vitamin D (Cholecalciferol (Vitamin D3) 25 Mcg Tablet) 50 mcg PO DAILY [facility] Labs 10/07/23 05:22 10/07/23 05:22 Labs: Laboratory Results - last 24 hr 10/06/23 10/06/23 10/06/23 09:34 18:32 20:04 MCV 95.6 MCH 31.4 MCHC 32.8 RDW 14.6 Plt Count 158 L MPV 11.3 Immature Gran % (Auto) 0.4 Neut % (Auto) 73.1 H Lymph % (Auto) 16.5 L [place] % (Auto) 7.6 Eos % (Auto) 2.0 Baso % (Auto) 0.4 Lymph # (Auto) 1.4 [place] # (Auto) 0.6 Eos # (Auto) 0.2 Baso # (Auto) 0.0 Abs Immat Gran (auto) 0.03 Absolute Neuts (auto) 6.0 Absolute Nucleated RBC 0.000 Nucleated RBC % (auto) 0.0 Anion Gap 12 Estim Creat Clear Calc 44.0 Estimated GFR 49 POC Glucose 75 129 H Random Glucose 128 H Calcium 10.0 Magnesium 1.7 Total Bilirubin 0.6 Direct Bilirubin 0.2 AST 33 ALT 33 Alkaline Phosphatase 47 Total Protein 7.2 Albumin 4.4 Urine Color Yellow Urine Appearance Clear Urine pH 7.0 Ur Specific [place] 1.025 Urine Protein Negative Urine Glucose (UA) >=1000 H Urine Ketones Negative Urine Blood Negative Urine Nitrite Negative Ur Leukocyte Esterase Negative Urine RBC 0-2 Urine WBC 0-5 Ur Squamous Epith Cells 0-2 Urine Bacteria None Seen Hyaline Casts 0-2 10/07/23 05:22 MCV 94.5 MCH 31.6 MCHC 33.4 RDW 14.5 Plt Count 147 L MPV 12.0 Immature Gran % (Auto) Neut % (Auto) Lymph % (Auto) [place] % (Auto) Eos % (Auto) Baso % (Auto) Lymph # (Auto) [place] # (Auto) Eos # (Auto) Baso # (Auto) Abs Immat Gran (auto) Absolute Neuts (auto) Absolute Nucleated RBC 0.000 Nucleated RBC % (auto) 0.0 Anion Gap 14 Estim Creat Clear Calc 44.0 Estimated GFR 55 POC Glucose Random Glucose 99 Calcium 9.7 Magnesium Total Bilirubin Direct Bilirubin AST ALT Alkaline Phosphatase Total Protein Albumin Urine Color Urine Appearance Urine pH Ur Specific [place] Urine Protein Urine Glucose (UA) Urine Ketones Urine Blood Urine Nitrite Ur Leukocyte Esterase Urine RBC Urine WBC Ur Squamous Epith Cells Urine Bacteria Hyaline Casts Procedures Date of Service Date of Service: 10/08/23 Progress Note: A&P Assessment and plan (1) Acute appendicitis: Status: Acute Assessment and Plan: Clinically looks well Very minimal tenderness No abdominal pain No fever, no WBC elevation Multiple medical problems I had a long discussion with the patient - he says he will continue with non surgical management in view of very minimal symptoms Exam remains very benign We will continue to do close serial monitoring Time Spent With Patient Time: Total time managing care of this patient today ____ minutes. Quality Stroke Does the patient have a stroke diagnosis?: No VTE Prior VTE?: No VTE Risk Level:: Medical - moderate - high VTE Device Contraindication: N/A - Device Ordered VTE Drug Contraindication: N/A - Med Ordered
[2023-10-07 07:59] VITALS: PULSE 68; RESP 18; TEMP 36.1; O2SAT 95
[2023-10-07 08:16] LABS: Glucose, Whole Blood 129 mg/dL (60-115)
[2023-10-07] MEDS: Metoprolol Tartrate 50 MG TABLET PO ×2 (08:28→20:14)
[2023-10-07] MEDS: lisinopriL 5 MG TABLET PO (08:28)
[2023-10-07] MEDS: Cyanocobalamin (Vitamin B-12) 1,000 MCG TABLET 1000 MCG PO (08:28)
[2023-10-07] MEDS: Finasteride 5 MG TABLET PO (08:28)
[2023-10-07] MEDS: Ferrous Sulfate 324 MG TABLET.DR PO (08:28)
[2023-10-07] MEDS: Omeprazole 20 MG CAPSULE.DR PO (08:28)
[2023-10-07] MEDS: Multivitamin TABLET 1 TAB PO (08:28)
[2023-10-07] MEDS: Cholecalciferol (Vitamin D3) 25 MCG TABLET 50 MCG PO (08:28)
[2023-10-07] MEDS: Fenofibrate,Micronized 134 MG CAPSULE PO (08:28)
[2023-10-07] MEDS: Atorvastatin Calcium 40 MG TABLET PO (08:29)
--- NOTE | 2023-10-07 09:48 | MHC.CM.PN ---
IMM DELIVERED. PATIENT LIVES IN A HOME W/ HIS . FUNCTIONALLY INDP. DENIES USE OF DME OR SERVICES. PCP RENY ELAINE RESPITE COORDINATOR PT COMPLETED HCP NAMING [facility] 1) MERI, 20 DTR DEANGELO. DP: GOAL IS HOME SELF CARE. TO TRANSPORT. CM WILL CONTINUE TO FOLLOW.
[2023-10-07] MEDS: Heparin Sodium,Porcine 5,000 UNIT/ML VIAL 5000 UNIT SUBCUT ×2 (10:11→22:10)
[2023-10-07 11:25] LABS: Glucose, Whole Blood 137 mg/dL (60-115)
--- NOTE | 2023-10-07 14:13 | PM.EVENT ---
Event Note Date of Service: 10/07/23 Event Note: Seen on afternoon rounds He denies abdominal pain He feels well overall He says he is hungry and wants to eat Has been afebrile Abdomen remained soft, very benign, minimal tenderness on right lower quadrant only with very deep palpation We start on regular diet tonight Continue IV antibiotics Time Spent With Patient Time: Total time managing care of this patient today ____ minutes.
[2023-10-07 15:22] VITALS: BP 129/60; PULSE 57; RESP 18; TEMP 36.4; O2SAT 94
[2023-10-07 16:08] LABS: Glucose, Whole Blood 118 mg/dL (60-115)
[2023-10-07 19:34] VITALS: BP 130/62; PULSE 58; RESP 18; TEMP 36.6; O2SAT 96
--- NOTE | 2023-10-07 19:35 | PC.NURSE ---
This RN assumed care at 1900,Pt Aox3 and independent, No pain reported at this time, pt reports I have pain when i press on it. the RLQ, BSx4 pain with palpation to the RLQ. Respiration even and unlabored, lung sounds clear, Skin dry and intact, pedal pulses palpable. VSS. Pt with no apparent distress, call dhaliwal within reach.
[2023-10-07 20:14] VITALS: BP 130/62; PULSE 64
[2023-10-07 20:15] VITALS: BP 130/62
[2023-10-07] MEDS: Doxazosin Mesylate 2 MG TABLET 8 MG PO (20:15)
[2023-10-07 20:33] LABS: Glucose, Whole Blood 152 mg/dL (60-115)
[2023-10-07] MEDS: Insulin Lispro 100 UNIT/ML 3 ML VIAL SUBCUT (20:45)
[2023-10-08] MEDS: Piperacillin Sodium/Tazobactam 3.375 GM in 0.9 % Sodium Chloride 50 ML IV ×3 (00:47→13:00)
[2023-10-08 03:51] VITALS: BP 131/58; PULSE 55; RESP 18; TEMP 36; O2SAT 99
[2023-10-08 07:03] VITALS: BP 127/63; PULSE 63; RESP 16; TEMP 36; O2SAT 96
[2023-10-08 07:08] LABS: Glucose, Whole Blood 142 mg/dL (60-115)
[2023-10-08] MEDS: Cyanocobalamin (Vitamin B-12) 1,000 MCG TABLET 1000 MCG PO (07:10)
[2023-10-08] MEDS: Multivitamin TABLET 1 TAB PO (07:11)
[2023-10-08] MEDS: Finasteride 5 MG TABLET PO (07:11)
[2023-10-08] MEDS: lisinopriL 5 MG TABLET PO (07:11)
[2023-10-08] MEDS: Ferrous Sulfate 324 MG TABLET.DR PO (07:11)
[2023-10-08] MEDS: Omeprazole 20 MG CAPSULE.DR PO (07:11)
[2023-10-08] MEDS: Fenofibrate,Micronized 134 MG CAPSULE PO (07:11)
[2023-10-08] MEDS: Cholecalciferol (Vitamin D3) 25 MCG TABLET 50 MCG PO (07:11)
[2023-10-08] MEDS: Metoprolol Tartrate 50 MG TABLET PO (07:11)
[2023-10-08] MEDS: Atorvastatin Calcium 40 MG TABLET PO (07:11)
[2023-10-08] MEDS: 0.9 % Sodium Chloride Flush 3 ML SYRINGE IVFLUSH ×2 (07:13)
--- NOTE | 2023-10-08 07:31 | PM.PNGS ---
Subjective Subjective Date of Service: 10/15/23 Interval history: Feels well this morning Denies abdominal pain Tolerating regular diet - says he enjoyed his hamburger last Physical Exam Vital Signs: Vital Signs: Last Vital Signs Temp 96.8 F 10/08/23 07:03 Pulse 63 10/08/23 07:03 Resp 16 10/08/23 07:03 BP 127/63 10/08/23 07:03 Pulse Ox 96 10/08/23 07:03 O2 Del Method Room Air 10/08/23 07:03 BMI result Body Mass Index 27.4 Const: General: comfortable and no acute distress Resp: Effort & Inspection: normal respiratory effort Cardio: Rate: regular rate GI: Palpation (GI): Soft to palpation, not firm, nontender and no guarding Objective Data Active Medications Acetaminophen (Acetaminophen Supp 650 Mg Supp.Rect) 650 mg [place] Q6H PRN PRN Reason: Pain, Mild (Pain Scale 1-3) Atorvastatin Calcium (Atorvastatin Calcium 40 Mg Tablet) 40 mg PO DAILY [facility] Last Admin: 10/08/23 07:11 Dose: 40 mg Documented By: LEONARDA Cyanocobalamin (Cyanocobalamin (Vitamin B-12) 1,000 Mcg Tablet) 1,000 mcg PO DAILY [facility] Last Admin: 10/08/23 07:10 Dose: 1,000 mcg Documented By: LEONARDA Doxazosin Mesylate (Doxazosin Mesylate 2 Mg Tablet) 8 mg PO BEDTIME [facility]; Protocol Last Admin: 10/07/23 20:15 Dose: 8 mg Documented By: PARAG Fenofibrate (Fenofibrate,Micronized 134 Mg Capsule) 134 mg PO DAILY [facility] Last Admin: 10/08/23 07:11 Dose: 134 mg Documented By: LEONARDA Ferrous Sulfate (Ferrous Sulfate 324 Mg Tablet.) 324 mg PO DAILY [facility] Last Admin: 10/08/23 07:11 Dose: 324 mg Documented By: LEONARDA Finasteride (Finasteride 5 Mg Tablet) 5 mg PO DAILY [facility] Last Admin: 10/08/23 07:11 Dose: 5 mg Documented By: LEONARDA Glucose (Glucose Gel 15 Gm Gel..Gram.) 15 gm PO Q15M PRN; Protocol PRN Reason: per Hypoglycemia Standing Ord. Heparin Sodium (Porcine) (Heparin Sodium,Porcine 5,000 Unit/Ml Vial) 5,000 unit SUBCUT Q12H [facility] Last Admin: 10/07/23 22:10 Dose: 5,000 unit Documented By: PARAG Piperacillin Sod/Tazobactam (Sod 3.375 gm/ Sodium Chloride) 50 mls @ 100 mls/hr IV Q6H [facility] Last Admin: 10/08/23 07:13 Dose: 100 mls/hr Documented By: LEONARDA Dextrose (D10) 250 mls @ 750 mls/hr IV Q15M PRN; Protocol PRN Reason: per Hypoglycemia Standing Ord. Insulin Human Lispro (Insulin Lispro 100 Unit/Ml 3 Ml Vial) 0 unit SUBCUT QIDACHS [facility]; Protocol Last Admin: 10/08/23 07:13 Dose: Not Given Documented By: LEONARDA Non-Admin Reason: No Insulin Coverage Lisinopril (Lisinopril 5 Mg Tablet) 5 mg PO DAILY [facility]; Protocol Last Admin: 10/08/23 07:11 Dose: 5 mg Documented By: LEONARDA Metoprolol Tartrate (Metoprolol Tartrate 50 Mg Tablet) 50 mg PO BID [facility]; Protocol Last Admin: 10/08/23 07:11 Dose: 50 mg Documented By: LEONARDA Morphine Sulfate (Morphine Sulfate 4 Mg/Ml Cartridge) 2 mg IVPUSH Q3H PRN; Protocol PRN Reason: Pain, Severe (Pain Scale 7-10) Multivitamins/Vitamin C (Multivitamin Tablet) 1 tab PO DAILY [facility] Last Admin: 10/08/23 07:11 Dose: 1 tab Documented By: LEONARDA Omeprazole (Omeprazole 20 Mg Capsule.) 20 mg PO DAILY [facility] Last Admin: 10/08/23 07:11 Dose: 20 mg Documented By: LEONARDA Ondansetron HCl (Ondansetron Hcl 4 Mg/2 Ml Vial) 4 mg IVPUSH Q8H PRN PRN Reason: Nausea and Vomiting Sodium Chloride (0.9 % Sodium Chloride Flush 3 Ml Syringe) 3 ml IVFLUSH QSHIFT [facility] Last Admin: 10/08/23 07:13 Dose: 3 ml Documented By: LEONARDA Vitamin D (Cholecalciferol (Vitamin D3) 25 Mcg Tablet) 50 mcg PO DAILY [facility] Last Admin: 10/08/23 07:11 Dose: 50 mcg Documented By: LEONARDA Labs 10/07/23 05:22 10/07/23 05:22 Labs: Laboratory Results - last 24 hr 10/07/23 10/07/23 10/07/23 08:01 11:21 16:04 POC Glucose 129 H 137 H 118 H 10/07/23 10/08/23 20:29 07:03 POC Glucose 152 H 142 H Microbiology Microbiology Results: Microbiology 10/06/23 13:34 Blood Culture - Preliminary Blood - Venous No growth after 24 hours. 10/06/23 13:22 Blood Culture - Preliminary Blood - Venous No growth after 24 hours. Procedures Date of Service Date of Service: 10/15/23 Progress Note: A&P Assessment and plan (1) Acute appendicitis: Status: Acute Assessment and Plan: Doing very well with medical management No abdominal pain or tenderness Has had fever WBC has been normal Looks well overall Good GI function Plan to DC home later on today on oral antibiotics Follow up next week in the office He is comfortable with the plan Time Spent With Patient Time: Total time managing care of this patient today ____ minutes. Quality Stroke Does the patient have a stroke diagnosis?: No VTE Prior VTE?: No VTE Risk Level:: Medical - moderate - high VTE Device Contraindication: N/A - Device Ordered VTE Drug Contraindication: N/A - Med Ordered
[2023-10-08 11:05] LABS: Glucose, Whole Blood 245 mg/dL (60-115)
[2023-10-08] MEDS: Insulin Lispro 100 UNIT/ML 3 ML VIAL SUBCUT (11:29)
--- NOTE | 2023-10-08 12:04 | MHC.CM.PN ---
Addendum entered by Tiarra Obrien RN 10/08/23 13:23: Patient medically cleared for dc home self care. is at bedside to transport. RN aware. Original Note: EMR reviewed. Patient not medically cleared for dc at this time. Potentially later today. CM will continue to follow.
--- NOTE | 2023-10-10 08:45 | P.DS_ITS ---
DS: Providers Provider Date of Service: 10/08/23 Date of admission: 10/06/23 13:22 Primary care physician: Renay Torres CNP Consults: 10/06/23 13:25 Consult to Hospitalist Routine Comment: Consulting Provider: Hospitalist Reason For Exam: CAD, HTN DS: Diagnosis Discharge Diagnosis (1) Acute appendicitis: Status: Acute DS: Summary Hospital Course Hospital Course: 83 year-old male with multiple medical problems including hypertension, coronary disease, status post CABG, admitted via the emergency room for right lower quadrant pain on 10/06/2023. His CAT scan showed mild inflammatory changes surrounding the appendix. There was no appendicolith. He was minimally tender on exam. CT scan findings were suggestive of mild acute appendicitis. I explained to him options of treatment including surgical treatment with appendectomy versus nonoperative treatment with IV antibiotics. He wanted to hold off on any surgical intervention. He did not have leukocytosis and actually barely had any tenderness on examination. He was on clear liquids this was slowly advanced. He continued to tolerate this. He denied have any fever nor any rise in his WBC. He continued to do well and did not have any significant pain or tenderness during his hospital stay. He was therefore discharged on 10/08/2023 with a course of oral antibiotics. At the time of his discharge, he was nontender, tolerating diet well, with good GI functions, without any fever. He also understood the risk of recurrence of his appendicitis. Time Attestation Discharge Coordination Time (in mins): 30 minutes Quality: Safe Use of Opioids Does Pt have an Active Cancer Diagnosis on the Problem List?: No Quality: Stroke Does the patient have a stroke diagnosis?: No Physical Exam Vital Signs: Vital Signs: Last Vital Signs Temp 96.8 F 10/08/23 07:03 Pulse 63 10/08/23 07:03 Resp 16 10/08/23 07:03 BP 127/63 10/08/23 07:03 Pulse Ox 96 10/08/23 07:03 O2 Del Method Room Air 10/08/23 07:03 BMI result Body Mass Index 27.4 Const: General: comfortable and no acute distress Or ientation/consciousness: patient oriented x3 Neck: Neck: Yes no lymphadenopathy Resp: Auscultation: clear to auscultation bilaterally Cardio: Rhythm: regular rhythm GI: Palpation (GI): Soft to palpation, nontender and no guarding Neuro: General: patient oriented x3 DS: Data Data Completed and Pending Labs on day of discharge: Preliminary micro results at discharge 10/06/23 13:34 Blood Culture - Preliminary Blood - Venous No growth after 48 hours. 10/06/23 13:22 Blood Culture - Preliminary Blood - Venous No growth after 48 hours. Discharge Plan Discharge Anticipated Discharge Date/Time: 10/08/23 14:00 Patient Disposition: Home, Self-Care Discharge Diagnosis: acute appendicitis Referrals: Ortiz Estrella MD [Physician] - 1 Week Discharge Medications: New amoxicillin-pot clavulanate 875-125 mg tablet 1 tab PO BID Qty: 10 0RF Continued multivitamin Tablet 1 tab PO DAILY cyanocobalamin (vitamin B-12) 1,000 mcg Tablet 1,000 mcg PO DAILY aspirin 81 mg Tablet,Delayed Release (Dr/Ec) 81 mg PO DAILY fenofibrate micronized 134 mg capsule 134 mg PO DAILY doxazosin 8 mg tablet 8 mg PO BEDTIME glipizide 2.5 mg tablet extended release 24hr 2.5 mg PO DAILY ferrous sulfate 325 mg (65 mg iron) Tablet 325 mg PO DAILY metoprolol tartrate 50 mg tablet 50 mg PO BID omeprazole 20 mg capsule,delayed release(DR/EC) 20 mg PO DAILY lisinopril 5 mg tablet 5 mg PO DAILY finasteride 5 mg tablet 5 mg PO DAILY rosuvastatin 10 mg tablet 10 mg PO DAILY cholecalciferol (vitamin D3) [Vitamin D3] 50 mcg (2,000 unit) Tablet 50 mcg PO DAILY Synjardy XR 12.5-1,000 mg tablet, IR - ER, biphasic 24hr 1 tab PO BID Discharge Orders: Discharge Order (Routine); Ordered 10/08/23 Ordered By: Ortiz Estrella Diet: Advance to usual diet Activity on Discharge: No heavy lifting Stand Alone Forms: Patient Portal Discharge page Print Language: Sammarinese Care Plan Goals: return to baseline Health Concerns: appendicitis DM CAD Plan of Treatment: oral antibiotics ffup in office Assessment: doing very well Discharge Date/Time: 10/08/23 13:46
== END 2023-10-08 13:46 | disposition home or self-care (01) | DRG 394 ==
LOC: HO.ED 13:43 → HO.EDOVER 15:15 → HO.S3 19:32
PROVIDERS: Physician Assistant; Admitting Provider Surgery; Emergency Provider Emergency Medicine; PCP Nurse Practitioner Family; Visit Provider Surgery
DX: K35.80 Unspecified acute appendicitis (principal); I13.0 Hypertensive heart and chronic kidney disease with heart failure and stage 1 through stage 4 chronic kidney disease, or unspecified chronic kidney disease; I50.22 Chronic systolic (congestive) heart failure; I25.10 Atherosclerotic heart disease of native coronary artery without angina pectoris; J44.9 Chronic obstructive pulmonary disease, unspecified; K21.9 Gastro-esophageal reflux disease without esophagitis; E11.40 Type 2 diabetes mellitus with diabetic neuropathy, unspecified; N18.30 Chronic kidney disease, stage 3 unspecified; E11.22 Type 2 diabetes mellitus with diabetic chronic kidney disease; Z95.1 Presence of aortocoronary bypass graft; Z85.46 Personal history of malignant neoplasm of prostate; Z92.3 Personal history of irradiation; Z79.82 Long term (current) use of aspirin; Z79.84 Long term (current) use of oral hypoglycemic drugs; Z79.899 Other long term (current) drug therapy
CPT/HCPCS: 36415; 74176; 80048; 80076; 81001; 82947; 83735; 85025; 85027; 87040; 99285; J1644; J2543

== ENCOUNTER → 2023-10-06 09:34 | Outpatient (BNV) | payer MEDICARE, OTHER, SELFPAY | PROVIDERS: Emergency Provider Emergency Medicine; PCP Nurse Practitioner Family; Visit Provider Physician Assistant | DX: K37 Unspecified appendicitis (principal) | CPT/HCPCS: 99222 ==

== ENCOUNTER → 2023-10-06 13:22 | Outpatient (BNV) | payer MEDICARE, OTHER, SELFPAY | PROVIDERS: Admitting Provider Surgery; Emergency Provider Emergency Medicine; PCP Nurse Practitioner Family; Visit Provider Surgery | DX: K35.80 Unspecified acute appendicitis (principal) | CPT/HCPCS: 99222; 99232; 99238; 99499 ==

== ENCOUNTER 2023-10-15 13:07 | Outpatient (AMB) | payer MEDICARE, OTHER, SELFPAY ==
--- NOTE | 2023-10-15 13:08 | A.OFFVIS_ITS ---
Vital Signs 10/15/23 13:16 Weight 187 lb Intake Visit Reasons: Appendicitis Intake Note: This patient presents for an assessment for appendicitis. Patient c/o; reports completed one round of abx, reports he has been doing very well and has not had any recent episodes. Hot Box Checker Required: No Accompanied by: Self / Same As Patient Allergies atenolol Adverse Reaction (Verified 10/15/23 13:17) Dizziness diltiazem [From Cardizem] Adverse Reaction (Verified 10/15/23 13:17) Heartburn losartan Adverse Reaction (Verified 10/15/23 13:17) Headache propranolol [From Inderal [place]] Adverse Reaction (Verified 10/15/23 13:17) Heartburn HPI HPI Appendicitis: Details: 83-year-old male here for follow-up after an inpatient admission. He was admitted on October 05 because of mild right lower quadrant pain along with a CT scan suggestive of appendicitis. However, he was very minimally tender. Furthermore, there was mild inflammatory changes along his appendix. He did not want to proceed with appendectomy and he continued to do well during this entire admission. He was on IV antibiotics and was discharged on October 07. He says he continues to do well at home but he denies any pain at all. He has good oral intake. He has good bowel movements. [facility] Medical History [place] esophagus Diabetic neuropathy Prostate cancer COPD (chronic obstructive pulmonary disease) Diabetes Acute appendicitis Hypertension Coronary artery disease Surgical History Status post radiation therapy Status post aorto-coronary artery bypass graft Social History Household Members: Spouse Housing: House Do you presently have visiting nurse or other home services: No Patient Tobacco Use Status: Never used Tobacco service: No Review of Systems Const Denies chills and Denies fever(s) Card Denies chest pain, Denies dyspnea and Denies dyspnea on exertion Resp Denies cough, Denies dyspnea and Denies dyspnea on exertion GI Denies hematochezia and Denies change in bowel habits Denies hematuria and Denies difficulty urinating Musc Denies back pain and Denies limited range of motion Neuro Denies focal weakness and Denies convulsions Psych Denies depression and Denies mood swings Physical Exam Const General: comfortable and no acute distress Orientation/consciousness: patient oriented x3 Neck Neck: Yes no lymphadenopathy Resp Auscultation: clear to auscultation bilaterally Cardio Rhythm: regular rhythm GI Palpation (GI): Soft to palpation, nontender and no guarding Neuro General: patient oriented x3 Assessment & Plan Assessment & Plan (1) Appendicitis: Code(s): K37 - Unspecified appendicitis Category: Medical Plan: He was admitted for appendicitis last October 05. This was treated conservatively with antibiotics. He is doing very well. He denies any abdominal pain. He denies any GI complaints. He looks well overall. He does understand the small risk of recurrence. He did have very minimal inflammatory changes surrounding the appendix at that time and he had no appendicolith. He can follow up with me on a p.r.n. basis. Coding Level of Care Code Est Pt Level 2 (69132) Diagnoses Appendicitis K37
== END 2023-10-15 13:39 | disposition home or self-care (01) ==
PROVIDERS: PCP Nurse Practitioner Family; Visit Provider Surgery
DX: K37 Unspecified appendicitis (principal)
CPT/HCPCS: 99212

== ENCOUNTER → 2023-10-15 13:07 | Outpatient (BNVA) | payer MEDICARE, OTHER, SELFPAY | PROVIDERS: PCP Nurse Practitioner Family; Visit Provider Surgery | DX: K37 Unspecified appendicitis (principal) | CPT/HCPCS: 99212 ==

== ENCOUNTER 2024-02-23 06:36 | Day surgery (SDC) | payer MEDICARE, OTHER, SELFPAY ==
[2024-02-18 09:11] VITALS: BMI 27.0
--- NOTE | 2024-02-19 13:50 | HO.ANESPROP2 ---
Documented by User: Ivette Peres NP 02/19/24 13:51 HPI - Anesthesia Eval Consult details Narrative: 83yo M for Cataract Extraction IOL Insertion No previous cataract on record Anesthesia Pre-Procedure Meds Is the patient on any of the following meds?: SGLT2 Inhib PMFSH Active Problems Active Problems: All Active Problems Hypertension (Acute) Status post aorto-coronary artery bypass graft (Acute) Coronary artery disease (Acute) Past Medical History Medical History Rib pain on left side Plantar fasciitis Palatal myoclonus Meniere's disease Mitral valve prolapse Lumbar spinal stenosis Hyperlipidemia Glaucoma GERD (gastroesophageal reflux disease) Diabetic nephropathy Deafness in right ear Migraine Back pain Chronic kidney disease Asthma Allergic rhinitis Tirdao esophagus Diabetic neuropathy Status post radiation therapy Prostate cancer COPD (chronic obstructive pulmonary disease) Diabetes Acute appendicitis Hypertension Coronary artery disease Surgical History Surgical History Hx of hemorrhoidectomy H/O colonoscopy Status post aorto-coronary artery bypass graft Social History Social History Household Members: Spouse Housing: House Are you a primary director of primary care to a significant other at home: No Do you presently have visiting nurse or other home services: No Patient Tobacco Use Status: Never used Tobacco Use of substances other than those prescribed or required for medical reasons: No Are you DNR?: No Advance Directives: No Advance Directives Information Provided: Yes Advance Directives on File: No Recently lost weight without trying: No Eating poorly because of decreased appetite: No Nutrition Risks: No Nutritional Risk service: No Meds Allergies Allergy/AdvReac Type Severity Reaction Status Date / Time atenolol AdvReac Dizziness Verified 02/23/24 07:34 diltiazem [From Cardizem] AdvReac Heartburn Verified 02/23/24 07:34 losartan AdvReac Headache Verified 02/23/24 07:34 propranolol [From Inderal LA] AdvReac Heartburn Verified 02/23/24 07:34 Home Medications ?Medication ?Instructions ?Recorded ?Confirmed ?Last Taken ?Type aspirin 81 mg tablet,delayed 81 mg PO BEDTIME 10/06/23 02/18/24 02/19/24 History release cholecalciferol (vitamin D3) 50 50 mcg PO DAILY 10/06/23 02/18/24 Unknown History mcg (2,000 unit) tablet (Vitamin D3) cyanocobalamin (vitamin B-12) 1,000 mcg PO DAILY 10/06/23 02/18/24 Unknown History 1,000 mcg tablet doxazosin 8 mg tablet 8 mg PO BEDTIME 10/06/23 02/18/24 Unknown History empagliflozin 12.5 mg-metformin ER 2 tab PO BID 10/06/23 02/18/24 02/19/24 History 1,000 mg tablet,extended rel 24 hr (Synjardy XR) fenofibrate micronized 134 mg 134 mg PO BEDTIME 10/06/23 02/18/24 Unknown History capsule ferrous sulfate 325 mg (65 mg 325 mg PO DAILY 10/06/23 02/18/24 Unknown History iron) tablet finasteride 5 mg tablet 5 mg PO BEDTIME 10/06/23 02/18/24 Unknown History glipizide 2.5 mg tablet, extended 2.5 mg PO DAILY 10/06/23 02/18/24 Unknown History release 24 hr lisinopril 5 mg tablet 5 mg PO DAILY 10/06/23 02/18/24 Unknown History metoprolol tartrate 50 mg tablet 50 mg PO BID 10/06/23 02/18/24 02/23/24 History multivitamin 1 tab PO DAILY 10/06/23 02/18/24 Unknown History omeprazole 20 mg capsule,delayed 20 mg PO DAILY 10/06/23 02/18/24 Unknown History release rosuvastatin 10 mg tablet 10 mg PO DAILY 10/06/23 02/18/24 Unknown History rimegepant 75 mg disintegrating 75 mg PO ONCE PRN Headache 02/18/24 02/18/24 Unknown History tablet (Nurtec ODT) Exam Height,Weight and Vital Signs: Height 5 ft 10.08 in Weight 85.6 kg Assessment and Plan Assessment Anesthesia Assessment: Chart Reviewed Documented by User: Eufemia Mckeon MD 02/23/24 08:04 FOR[facility]LY [facility] Past Medical History Medical History Rib pain on left side Plantar fasciitis Palatal myoclonus Meniere's disease Mitral valve prolapse Lumbar spinal stenosis Hyperlipidemia Glaucoma GERD (gastroesophageal reflux disease) Diabetic nephropathy Deafness in right ear Migraine Back pain Chronic kidney disease Asthma Allergic rhinitis Tirado esophagus Diabetic neuropathy Status post radiation therapy Prostate cancer COPD (chronic obstructive pulmonary disease) Diabetes Acute appendicitis Hypertension Coronary artery disease Family History Family history of problems with anesthesia: No Surgical History Surgical History Hx of hemorrhoidectomy H/O colonoscopy Status post aorto-coronary artery bypass graft History of Problems with Anesthesia: No Social History Social History Household Members: Spouse Housing: House Are you a primary director of primary care to a significant other at home: No Do you presently have visiting nurse or other home services: No Patient Tobacco Use Status: Never used Tobacco Use of substances other than those prescribed or required for medical reasons: No Are you DNR?: No Advance Directives: No Advance Directives Information Provided: Yes Advance Directives on File: No Recently lost weight without trying: No Eating poorly because of decreased appetite: No Nutrition Risks: No Nutritional Risk service: No Meds Allergies Allergy/AdvReac Type Severity Reaction Status Date / Time atenolol AdvReac Dizziness Verified 02/23/24 07:34 diltiazem [From Cardizem] AdvReac Heartburn Verified 02/23/24 07:34 losartan AdvReac Headache Verified 02/23/24 07:34 propranolol [From Inderal LA] AdvReac Heartburn Verified 02/23/24 07:34 Home Medications ?Medication ?Instructions ?Recorded ?Confirmed ?Last Taken ?Type aspirin 81 mg tablet,delayed 81 mg PO BEDTIME 10/06/23 02/18/24 02/19/24 History release cholecalciferol (vitamin D3) 50 50 mcg PO DAILY 10/06/23 02/18/24 Unknown History mcg (2,000 unit) tablet (Vitamin D3) cyanocobalamin (vitamin B-12) 1,000 mcg PO DAILY 10/06/23 02/18/24 Unknown History 1,000 mcg tablet doxazosin 8 mg tablet 8 mg PO BEDTIME 10/06/23 02/18/24 Unknown History empagliflozin 12.5 mg-metformin ER 2 tab PO BID 10/06/23 02/18/24 02/19/24 History 1,000 mg tablet,extended rel 24 hr (Synjardy XR) fenofibrate micronized 134 mg 134 mg PO BEDTIME 10/06/23 02/18/24 Unknown History capsule ferrous sulfate 325 mg (65 mg 325 mg PO DAILY 10/06/23 02/18/24 Unknown History iron) tablet finasteride 5 mg tablet 5 mg PO BEDTIME 10/06/23 02/18/24 Unknown History glipizide 2.5 mg tablet, extended 2.5 mg PO DAILY 10/06/23 02/18/24 Unknown History release 24 hr lisinopril 5 mg tablet 5 mg PO DAILY 10/06/23 02/18/24 Unknown History metoprolol tartrate 50 mg tablet 50 mg PO BID 10/06/23 02/18/24 02/23/24 History multivitamin 1 tab PO DAILY 10/06/23 02/18/24 Unknown History omeprazole 20 mg capsule,delayed 20 mg PO DAILY 10/06/23 02/18/24 Unknown History release rosuvastatin 10 mg tablet 10 mg PO DAILY 10/06/23 02/18/24 Unknown History rimegepant 75 mg disintegrating 75 mg PO ONCE PRN Headache 02/18/24 02/18/24 Unknown History tablet (Nurtec ODT) Exam Airway Mallampati Class: II TM Dist: >3cm Heart: rrr Lungs: cta Assessment and Plan Assessment Anesthesia Assessment: Anesthesia Plan Discussed Final Anesthetic Review Family History of Problems with Anesthesia: No History of Problems with Anesthesia: No NPO: Yes ASA Class: III Final Preanesthetic Review: No Changes in Pt Med Stat, Meds/Allgs Chart Reviewed, Consent Obtained/Reviewed and Anes Risks/Benef Reviewed Patient Risk: Intermediate Procedure Risk: Low Anesthetic Plan Anesthetic Plan: MAC: Disposition: Standard PACU
[2024-02-23] MEDS: Lactated Ringers 500 ML 50 ML IV (07:13)
[2024-02-23] MEDS: Phenylephrine HCL 2.5% Oph SoL 2 ML BOTTLE 1 DROP EYE-LEFT ×3 (07:13→07:21)
[2024-02-23] MEDS: Tetracaine HCl/PF 0.5% Oph Sol 4 ML DROPS 1 DROP EYE-LEFT (07:13)
[2024-02-23] MEDS: Tropicamide 1 % Ophth Sol 3 ML BTL 1 DROP EYE-LEFT ×3 (07:14→07:22)
[2024-02-23] MEDS: Ketorolac Tromethamine 0.5% Op 10 ML DROPS 1 DROP EYE-LEFT ×3 (07:14→07:21)
[2024-02-23] MEDS: Cyclopentolate 1 % Ophth Sol 2 ML DRPBTL 1 DROP EYE-LEFT ×3 (07:14→07:21)
[2024-02-23 07:26] LABS: Glucose, Whole Blood 166 mg/dL (60-115)
[2024-02-23 07:33] VITALS: BP 164/73; PULSE 77; RESP 18; TEMP 36.7; O2SAT 99
[2024-02-23 07:48] VITALS: BMI 26.8
--- NOTE | 2024-02-23 08:18 | MHC.SHP ---
Pre-Procedural Eval Section A - 24 Hr Update-Section A only Date of Service: 02/23/24 The patient is an INPATIENT: No Changes since office visit: No Cold of Flu in the past 2 weeks, No New Medical Problems, No Changes in Medication and No Patient answered all questions The patient has been examined within 24 hours of the surgical procedure. The History & Physical has been completed within 30 days and I have reviewed it.: Yes Section B - Complete if H&P > 30 days Chief Complaint: Age-related nuclear cataract, left eye Allergies: Allergies Allergy/AdvReac Type Severity Reaction Status Date / Time atenolol AdvReac Dizziness Verified 02/23/24 07:34 diltiazem [From Cardizem] AdvReac Heartburn Verified 02/23/24 07:34 losartan AdvReac Headache Verified 02/23/24 07:34 propranolol [From Inderal LA] AdvReac Heartburn Verified 02/23/24 07:34 Plan Diagnosis/Plan: Unchanged I have reviewed the history and physical and performed a pertinent physical examination on my patient. No changes have occurred unless specified. Time Spent With Patient Time: Total time managing care of this patient today ____ minutes.
--- NOTE | 2024-02-23 08:18 | HO.PNOPHT ---
Ophthalmology Procedure Procedure Date of Service: 02/23/24 Ophthalmology Viscoelastic: Healon Duet Dual Pack Pro Ophthalmology Lenses: IOL Acrysof MP - MA60AC (21) Procedure Notes: PREOPERATIVE DIAGNOSIS: Decreased visual acuity left eye secondary to cataract POSTOPERATIVE DIAGNOSIS: Same PROCEDURE: Left cataract extraction with intraocular lens insertion SURGEON: Mike Hernandez M.D. ANESTHESIA: Topical/MAC ESTIMATED BLOOD LOSS: None COMPLICATIONS: None After obtaining informed consent, the patient was brought to the operation room suite and placed in the supine position. After adequate sedation per anesthesia, topical drops of Tetracaine were given to the left eye. The eye was then prepped and draped in the usual sterile fashion. The operating room microscope was then positioned over the operative eye and a lid speculum placed. A paracentesis was created. Viscoelastic was then instilled into the anterior chamber. A three plane incision was then created temporally, utilizing a 2.85 mm keratome. Capsulotomy forceps were then utilized to create a circular tear capsulotomy. Hydrodissection and hydrodelineation were carried out until adequate mobilization of the nucleus occurred. Phacoemulsification was then utilized to remove the dense central nucleus followed by removal of the cortical material utilizing the automated aspiration irrigation unit. Viscoat elastic was instilled into the posterior capsular bag followed by placement of a posterior chamber intraocular lens without difficulty. The residual Viscoat elastic was then removed utilizing the automated IA machine. The wound was check and found to be watertight. The patient tolerated the procedure well and the lid speculum was removed. Intracameral injection of Vigamox 0.1 mL followed by a subtenon injection of Kenalog-40 0.2 mL were administered. The patient will be seen in the a.m.
[2024-02-23 08:47] VITALS: BP 154/74; PULSE 62; RESP 18; TEMP 36.1; O2SAT 97
== END 2024-02-23 09:05 | disposition home or self-care (01) ==
PROVIDERS: PCP Family Medicine; Visit Provider Ophthalmology
PROC: (CPT 66985; principal; 2024-02-23 08:30)
DX: H25.12 Age-related nuclear cataract, left eye (principal); H52.4 Presbyopia; H40.013 Open angle with borderline findings, low risk, bilateral; H18.413 Arcus senilis, bilateral; H43.399 Other vitreous opacities, unspecified eye; I12.9 Hypertensive chronic kidney disease with stage 1 through stage 4 chronic kidney disease, or unspecified chronic kidney disease; E11.22 Type 2 diabetes mellitus with diabetic chronic kidney disease; E11.40 Type 2 diabetes mellitus with diabetic neuropathy, unspecified; N18.31 Chronic kidney disease, stage 3a; E78.00 Pure hypercholesterolemia, unspecified; K22.70 Barrett's esophagus without dysplasia; J45.909 Unspecified asthma, uncomplicated; Z85.46 Personal history of malignant neoplasm of prostate; Z85.828 Personal history of other malignant neoplasm of skin; Z79.84 Long term (current) use of oral hypoglycemic drugs; Z79.899 Other long term (current) drug therapy; Z79.82 Long term (current) use of aspirin
CPT/HCPCS: 66984; 82947; J3010; J3301; V2630

== ENCOUNTER 2024-03-08 06:56 | Day surgery (SDC) | payer MEDICARE, OTHER, SELFPAY ==
[2024-02-18 09:15] VITALS: BMI 27.0
[2024-03-08 07:20] VITALS: BP 165/53; PULSE 63; RESP 16; TEMP 36.1; O2SAT 98
[2024-03-08] MEDS: Tetracaine HCl/PF 0.5% Oph Sol 4 ML DROPS 1 DROP EYE-RIGHT (07:25)
[2024-03-08] MEDS: Cyclopentolate 1 % Ophth Sol 2 ML DRPBTL 1 DROP EYE-RIGHT ×3 (07:26→07:32)
[2024-03-08] MEDS: Tropicamide 1 % Ophth Sol 3 ML BTL 1 DROP EYE-RIGHT ×3 (07:27→07:32)
[2024-03-08] MEDS: Ketorolac Tromethamine 0.5% Op 10 ML DROPS 1 DROP EYE-RIGHT ×3 (07:29→07:33)
--- NOTE | 2024-03-08 07:30 | HO.ANESPROP2 ---
HPI - Anesthesia Eval Consult details Narrative: 83 yo M presenting for right cataract extraction IOL insertion. Reports that he did not have enough sedation with previous cataract surgery. FORMERLY [facility], [facility] Active Problems Active Problems: All Active Problems Hypertension (Acute) Status post aorto-coronary artery bypass graft (Acute) Coronary artery disease (Acute) Past Medical History Medical History Rib pain on left side Plantar fasciitis Palatal myoclonus Meniere's disease Mitral valve prolapse Lumbar spinal stenosis Hyperlipidemia Glaucoma GERD (gastroesophageal reflux disease) Diabetic nephropathy Deafness in right ear Migraine Back pain Chronic kidney disease Asthma Allergic rhinitis Tirado esophagus Diabetic neuropathy Status post radiation therapy Prostate cancer COPD (chronic obstructive pulmonary disease) Diabetes Acute appendicitis Hypertension Coronary artery disease Family History Family history of problems with anesthesia: No Surgical History Surgical History Hx of hemorrhoidectomy H/O colonoscopy Status post aorto-coronary artery bypass graft History of Problems with Anesthesia: No Social History Social History Household Members: Spouse Housing: House Are you a primary healthcare management to a significant other at home: No Do you presently have visiting nurse or other home services: No Patient Tobacco Use Status: Never used Tobacco Use of substances other than those prescribed or required for medical reasons: No Have you been hit, kicked, punched, or otherwise hurt by someone within the past year? If so, by whom?: No Are you DNR?: No Advance Directives: No Advance Directives Information Provided: Yes Advance Directives on File: No Recently lost weight without trying: No Eating poorly because of decreased appetite: No Nutrition Risks: No Nutritional Risk service: No Meds Allergies Allergy/AdvReac Type Severity Reaction Status Date / Time atenolol AdvReac Dizziness Verified 02/23/24 07:34 diltiazem [From Cardizem] AdvReac Heartburn Verified 02/23/24 07:34 losartan AdvReac Headache Verified 02/23/24 07:34 propranolol [From Inderal LA] AdvReac Heartburn Verified 02/23/24 07:34 Active Medications: Current Medications Povidone Iodine (Povidone Iodine 5 % Ophth Soln 30 Ml Bottle) 1 appl EYE-RIGHT PREOP PRN PRN Reason: Pre-Op Surgical Implant Prophy Home Medications ?Medication ?Instructions ?Recorded ?Confirmed ?Last Taken ?Type aspirin 81 mg tablet,delayed 81 mg PO BEDTIME 10/06/23 02/18/24 02/19/24 History release cholecalciferol (vitamin D3) 50 50 mcg PO DAILY 10/06/23 02/18/24 Unknown History mcg (2,000 unit) tablet (Vitamin D3) cyanocobalamin (vitamin B-12) 1,000 mcg PO DAILY 10/06/23 02/18/24 Unknown History 1,000 mcg tablet doxazosin 8 mg tablet 8 mg PO BEDTIME 10/06/23 02/18/24 Unknown History empagliflozin 12.5 mg-metformin ER 2 tab PO BID 10/06/23 02/18/24 03/04/24 History 1,000 mg tablet,extended rel 24 hr (Synjardy XR) fenofibrate micronized 134 mg 134 mg PO BEDTIME 10/06/23 02/18/24 Unknown History capsule ferrous sulfate 325 mg (65 mg 325 mg PO DAILY 10/06/23 02/18/24 Unknown History iron) tablet finasteride 5 mg tablet 5 mg PO BEDTIME 10/06/23 02/18/24 Unknown History glipizide 2.5 mg tablet, extended 2.5 mg PO DAILY 10/06/23 02/18/24 Unknown History release 24 hr lisinopril 5 mg tablet 5 mg PO DAILY 10/06/23 02/18/24 Unknown History metoprolol tartrate 50 mg tablet 50 mg PO BID 10/06/23 02/18/24 03/08/24 History multivitamin 1 tab PO DAILY 10/06/23 02/18/24 Unknown History omeprazole 20 mg capsule,delayed 20 mg PO DAILY 10/06/23 02/18/24 03/08/24 History release rosuvastatin 10 mg tablet 10 mg PO DAILY 10/06/23 02/18/24 Unknown History rimegepant 75 mg disintegrating 75 mg PO ONCE PRN Headache 02/18/24 02/18/24 Unknown History tablet (Nurtec ODT) Exam Exam Date and Time: 03/08/24 0728 Height,Weight and Vital Signs: Height 5 ft 10.08 in Weight 85.6 kg Last Vital Signs Temp 96.9 F 03/08/24 07:20 Pulse 63 03/08/24 07:20 Resp 16 03/08/24 07:20 BP 165/53 H 03/08/24 07:20 Pulse Ox 98 03/08/24 07:20 O2 Del Method Room Air 03/08/24 07:20 Airway Mallampati Class: II TM Dist: >3cm Neck ROM: Full Denture: Upper Heart: S1S2 Lungs: CTAB Assessment and Plan Assessment Anesthesia Assessment: Anesthesia Plan Discussed and Chart Reviewed Final Anesthetic Review Family History of Problems with Anesthesia: No History of Problems with Anesthesia: No NPO: Yes ASA Class: III Final Preanesthetic Review: No Changes in Pt Med Stat, Meds/Allgs Chart Reviewed, Consent Obtained/Reviewed and Anes Risks/Benef Reviewed Patient Risk: Intermediate Procedure Risk: Low Anesthetic Plan Anesthetic Plan: MAC: and Agree w/ Assess. and Plan Disposition: Standard PACU
[2024-03-08] MEDS: Phenylephrine HCL 2.5% Oph SoL 2 ML BOTTLE 1 DROP EYE-RIGHT ×3 (07:31→07:34)
[2024-03-08 07:43] LABS: Glucose, Whole Blood 147 mg/dL (60-115)
--- NOTE | 2024-03-08 08:05 | P.PCNO_ITS ---
Ophthalmology Procedure Procedure Date of Service: 03/08/24 Ophthalmology Viscoelastic: Healon Duet Dual Pack Pro Ophthalmology Lenses: IOL Acrysof MP - MA60AC (20.5) Procedure Notes: PREOPERATIVE DIAGNOSIS: Decreased visual acuity right eye secondary to cataract POSTOPERATIVE DIAGNOSIS: Same PROCEDURE: Right cataract extraction with intraocular lens insertion SURGEON: Mike Hernandez M.D. ANESTHESIA: Topical/MAC ESTIMATED BLOOD LOSS: None COMPLICATIONS: None After obtaining informed consent, the patient was brought to the operating room suite and placed in the supine position. After adequate sedation per anesthesia, topical drops of Tetracaine were given to the right eye. The eye was then prepped and draped in the usual sterile fashion. The operating room microscope was then positioned over the operative eye and a lid speculum placed. A paracentesis was created. Viscoelastic was then instilled into the anterior chamber. A three plane incision was then created temporally, utilizing a 2.85 mm keratome. Capsulotomy forceps were then utilized to create a circular tear capsulotomy. Hydrodissection and hydrodelineation were carried out until adequate mobilization of the nucleus occurred. Phacoemulsification was then utilized to remove the dense central nu cleus followed by removal of the cortical material utilizing the automated aspiration irrigation unit. Viscoelastic was instilled into the posterior capsular bag followed by placement of a posterior chamber intraocular lens without difficulty. The residual Viscoelastic was then removed utilizing the automated IA machine. The wound was checked and found to be watertight. The patient tolerated the procedure well and the lid speculum was removed. Intracameral injection of Vigamox 0.1 mL followed by a subtenon injection of Kenalog-40 0.2 mL were administered. The patient will be seen in the a.m.
--- NOTE | 2024-03-08 08:05 | MHC.SHP ---
Pre-Procedural Eval Section A - 24 Hr Update-Section A only Date of Service: 03/08/24 The patient is an INPATIENT: No Changes since office visit: No Cold of Flu in the past 2 weeks, No New Medical Problems, No Changes in Medication and No Patient answered all questions The patient has been examined within 24 hours of the surgical procedure. The History & Physical has been completed within 30 days and I have reviewed it.: Yes Section B - Complete if H&P > 30 days Chief Complaint: Age-related nuclear cataract, right eye Allergies: Allergies Allergy/AdvReac Type Severity Reaction Status Date / Time atenolol AdvReac Dizziness Verified 02/23/24 07:34 diltiazem [From Cardizem] AdvReac Heartburn Verified 02/23/24 07:34 losartan AdvReac Headache Verified 02/23/24 07:34 propranolol [From Inderal LA] AdvReac Heartburn Verified 02/23/24 07:34 Plan Diagnosis/Plan: Unchanged I have reviewed the history and physical and performed a pertinent physical examination on my patient. No changes have occurred unless specified. Time Spent With Patient Time: Total time managing care of this patient today ____ minutes.
[2024-03-08 08:33] VITALS: BP 145/68; PULSE 61; RESP 12; TEMP 36.2; O2SAT 98
[2024-03-08 08:46] VITALS: BP 130/64; PULSE 57; RESP 16; TEMP 36.2; O2SAT 98
== END 2024-03-08 08:52 | disposition home or self-care (01) ==
PROVIDERS: PCP Family Medicine; Visit Provider Ophthalmology
PROC: (CPT 66985; principal; 2024-03-08 08:00)
DX: H25.11 Age-related nuclear cataract, right eye (principal); H52.4 Presbyopia; H40.013 Open angle with borderline findings, low risk, bilateral; H18.413 Arcus senilis, bilateral; H43.399 Other vitreous opacities, unspecified eye; E11.22 Type 2 diabetes mellitus with diabetic chronic kidney disease; I12.9 Hypertensive chronic kidney disease with stage 1 through stage 4 chronic kidney disease, or unspecified chronic kidney disease; N18.31 Chronic kidney disease, stage 3a; E11.40 Type 2 diabetes mellitus with diabetic neuropathy, unspecified; E78.00 Pure hypercholesterolemia, unspecified; I25.10 Atherosclerotic heart disease of native coronary artery without angina pectoris; Z95.1 Presence of aortocoronary bypass graft; K22.70 Barrett's esophagus without dysplasia; Z85.46 Personal history of malignant neoplasm of prostate; Z92.3 Personal history of irradiation; Z79.82 Long term (current) use of aspirin; Z79.84 Long term (current) use of oral hypoglycemic drugs; Z88.2 Allergy status to sulfonamides; Z88.8 Allergy status to other drugs, medicaments and biological substances; Z79.899 Other long term (current) drug therapy
CPT/HCPCS: 66984; 82947; J2003; J2250; J2704; J3010; J3301; V2630